=== PATIENT | male | born 1965 | race Caucasian/White ===

== ENCOUNTER 2017-11-09 14:59 | Emergency (ER) | payer OTHER ==
[~2017-11-09] VITALS: Ht 193 cm; Wt 108.0 kg
[~2017-11-09 14:59] MED LIST: CLEOCIN300 MG PO; LASIX20 MG PO; METHADONE10 MG/1 M1 PO; NOHOMEMEDS
[2017-11-09 15:54] LABS: HEMATOCRIT 38.1 % (38.0-50.0); MCH 31.6 PG (29.0-34.0); MCHC 34.1 G/DL (30.0-36.0); MCV 92.5 FL (86-99); PLATELET COUNT 144 K/uL (156-360); RBC DIS.WIDTH-CV 14.6 % (11.8-14.6); RBC DIS.WIDTH-SD 49.8 % (39-53); RED BLOOD COUNT 4.12 M/uL (4.00-5.50); WHITE BLOOD COUNT 8.1 K/uL (4.1-10.2)
[2017-11-09 16:03] LABS: ALBUMIN 3.8 g/dL (3.2-4.8); CHLORIDE 104 mEq/L (99-109); POTASSIUM 4.6 mEq/L (3.7-5.4); SODIUM 139 mEq/L (136-147)
[2017-11-09 16:06] LABS: GLUCOSE 116 mg/dL (70-99); TOTAL PROTEIN 7.1 g/dL (6.4-8.3)
[2017-11-09 16:07] LABS: APPEARANCE CLEAR ((CLEAR)); BILIRUBIN NEGATIVE; BLOOD SMALL; COLOR YELLOW ((YELLOW)); GLUCOSE (STRIP) NEGATIVE; KETONES NEGATIVE; LEUKOCYTES NEGATIVE; NITRITE NEGATIVE; PROTEIN (STRIP) 30
[2017-11-09 16:08] LABS: TOTAL BILIRUBIN 0.8 mg/dL (0.0-1.0)
[2017-11-09 16:09] LABS: ALKALINE PHOSPHATASE 75 IU/L (3-129); GFR ESTIMATE (CALCULATED) > 59 mL/min/ (58.99-99999)
[2017-11-09 16:10] LABS: UREA NITROGEN (BUN) 9 mg/dL (9-23)
[2017-11-09 16:11] LABS: AST (GOT) 50 IU/L (2-34)
[2017-11-09 16:12] LABS: ALT (GPT) 54 IU/L (3-49)
[2017-11-09 16:20] LABS: BACTERIA RARE /HPF; EPITHELIAL CELLS NONE SEEN /HPF; MUCUS TRACE /LPF; RED BLOOD CELLS 15-20 /HPF (0-5); UCUL ADDED? NO; WHITE BLOOD CELLS 0-5 /HPF (0-5)
[2017-11-09 17:15] LABS: LIPASE 34 U/L (1.0-51.0)
[2017-11-09] MEDS ORDERED: MOTRIN800 MG PO (18:26)
[2017-11-09] MEDS ORDERED: ZOFRAN4 MG PO (18:27)
[2017-11-09] MEDS ORDERED: BENTYL20 MG PO (18:27)
[2017-11-09 18:37] VITALS: BP 114/62
== END 2017-11-09 18:39 | disposition home or self-care (01) ==
LOC: EME 14:59
PROVIDERS: Nurse Practitioner Family
DX: R31.9 Hematuria, unspecified (principal); R10.11 Right upper quadrant pain; R91.1 Solitary pulmonary nodule; K76.0 Fatty (change of) liver, not elsewhere classified; K74.60 Unspecified cirrhosis of liver; N28.89 Other specified disorders of kidney and ureter; R59.9 Enlarged lymph nodes, unspecified; M25.511 Pain in right shoulder; K80.20 Calculus of gallbladder without cholecystitis without obstruction; R16.2 Hepatomegaly with splenomegaly, not elsewhere classified; F17.200 Nicotine dependence, unspecified, uncomplicated
CPT/HCPCS: 74176; 76705; 80053; 81003; 83690; 85027; 99281; 99284; J0500; J1885